=== PATIENT | female | born 1990 | race African-American/Black ===

== ENCOUNTER → 2021-08-24 | Day surgery (SDC) | payer OTHER ==
[~2021-08-24] VITALS: Ht 160 cm; Wt 103.0 kg
[~2021-08-24] MED LIST: HYDROmorphone 2 MG/ML INJ. IVP PRN; IV RINGERS,LACTATED 1000ML 1,000 ML IV SCH; LIDOCAINE 2% PF 5 ML VIAL. ONE; MORPHINE SULFATE 2 MG/ML INJ. IVP PRN; PROCHLORPERAZINE 10 MG/2 ML VIAL. IVP PRN; PROPOFOL 10 MG/ML (20ML) VIAL. IV ONE; fentaNYL PF VIAL 100 MCG/2 ML VIAL IVP PRN
[2021-08-24 07:25] VITALS: BP 119/84
[2021-08-24 08:53] VITALS: BP 121/71
== END | disposition home or self-care (01) ==
LOC: ENDOS 07:00
PROVIDERS: ATTEND Internal Medicine Gastroenterology
DX: K92.1 Melena (principal); R10.32 Left lower quadrant pain; K64.0 First degree hemorrhoids; K63.89 Other specified diseases of intestine; Z79.899 Other long term (current) drug therapy; Z98.890 Other specified postprocedural states
CPT/HCPCS: 45378; 81025; J2704